=== PATIENT | female | born 1970 | race Caucasian/White ===

== ENCOUNTER 2023-05-07 10:59 | Observation (INO) ==
[2023-05-07 11:07] VITALS: BMI 31.8
[2023-05-07] MEDS ORDERED: TORADOL 30 MG VIAL ONE (12:06)
[2023-05-07] MEDS ORDERED: NS 1,000 ML IV 1,000 ML ONE ×2 (12:06→13:20)
[2023-05-07] MEDS ORDERED: ZOFRAN INJ 4 MG VIAL ONE ×2 (12:06→13:31)
--- NOTE | 2023-05-07 12:10 | DR.NAUSEAF ---
HPI Time Seen Time Seen by Provider: 05/07/23 12:10 Primary Care Physician Primary Care Physician: [place] Complaints Chief Complaint Doctors Comments: 52-year-old female presents for evaluation. Patient became ill this past weekend, developed nausea, vomiting and diarrhea, with diffuse abdominal pain. Was seen evaluated here 3 days ago. CAT scan showed diffuse colitis changes be present. Patient was discharged on antibiotics. Patient had worsening nausea and vomiting this a.m. Unable to keep down her medications. Diarrhea has finally improved with some Lomotil. Thinks some abdominal discomfort, periumbilical region. Worse with palpation and movement. Nothing makes better. Has been running some low-grade fevers. Denies any upper respiratory symptoms. No urinary complaints. No history of any prior intestinal issues. Chief Complaint:: Patient states that she came to the ER 05/03/23 and was diagnosed with colitis after scans were taken. Dr. Mantilla prescribed medication for her to take, but her loose stools and throwing up continued. She states that she continues to throw up today, and is unable to keep any medication down. COVID-19 Coronavirus risk:travel/contact w/high risk person: No Has patient experienced Coronavirus symptoms: No Reviewed Nurses Notes Reviewed: Yes Source History Provided: Patient Mode of Arrival Mode of Arrival: Ambulatory Timing Onset of Chief Complaint: 05/03/23 PMH PMH Past Medical History: Yes Past Medical History: Asthma and GERD Past Surgical History: Yes Surgical History: Hysterectomy and Tonsillectomy Family History History of Family Medical Conditions: Yes Family Medical History: Coronary Artery Disease and Hypertension Social History Does patient currently use any type of tobacco product: No Have you used tobacco products in the last 12 months: No Type of Tobacco Use: None Does any household member use tobacco: No Alcohol Use: None Do you use any recreational Drugs:: No Lives With: Spouse Lives Where: Home Travel Risk Coronavirus risk:travel/contact w/high risk person: No Has patient experienced Coronavirus symptoms: No Infectious screening In the last 2 months have you had wt loss of >10#?: NO Have you had fever, night sweats or hemotysis?: No Have you traveled outside the country in the last 6 months?: No Isolation: Standard ROS Review of Systems Constitutional: No Symptoms Reported Eyes: No Symptoms Reported ENTM: No Symptoms Reported Respiratoy: No Symptoms Reported Cardiovascular: No Symptoms Reported Gastrointestinal/Abdominal: See HPI Genitourinary: No Symptoms Reported Neurological: No Symptoms Reported Musculoskeletal: No Symptoms Reported Integumentary: No Symptoms Reported Hematologic/Lymphatic: No Symptoms Reported All Other Systems: Reviewed and Negative PE Vital Signs Vitals: Vital Signs Temperature 97.7 F Pulse Rate 99 Respiratory Rate 18 Respiratory Rate 18 Blood Pressure 131/71 O2 Sat by Pulse Oximetry 99 General General Appearance: Alert and In No Apparent Distress Eyes Eye exam: PERRL and EOMI ENT ENT Exam: Mucous Membranes Moist Neck Neck Exam: Normal Inspection Chest Chest Inspection: Normal Inspection Respiratory Respiratory Exam: Normal Lung Sounds Bilat; negative Accessory Muscle Use or Respiratory Distress Cardiovascular Cardiovascular Exam: Regular Rate, Normal Rhythm and Normal Heart Sounds Abdominal Exam Abdominal Exam: Normal Bowel Sounds, Soft and Tenderness (mild, all quadrants diffusely, no guarding or rebound.) Extremities Extremities Exam: Normal Inspection; negative Edema Neurologic Neurological Exam: Alert, Oriented X3 and CN II-XII Intact; negative Motor Sensory Deficit Skin Skin Exam: Warm and Dry COURSE Treatment Treatment: 52 y/o female recently diagnosed with colitis, presents with worsening nausea and vomiting. Workup initiated. Patient given IV fluids. Given IV Zofran/Toradol, will add IV protonix. 1325 -labs show elevated white count, elevated creatinine and decreased EGFR consistent with volume depletion. Recommend admission for further treatment of her colitis and dehydration. Patient works here in the hospital, would like to be admitted to Ms. Mejia/Dr. Mcclure service. RN discussed with Ms. Mejia, she accepts the admission. ROR Labs Reviewed Laboratory Results Reviewed?: Yes 05/07/23 12:02 05/07/23 12:02 Laboratory: WBC 16.2 X10^3/uL (3.6-10.0) H 05/07/23 12:02 RBC 4.63 X10^6/uL (3.5-5.4) 05/07/23 12:02 Hgb 12.7 g/dL (12.0-16.0) 05/07/23 12:02 Hct 39.1 % (36.0-47.0) 05/07/23 12:02 MCV 84.5 fL (80.0-100.0) 05/07/23 12:02 MCH 27.3 pg (27.0-34.0) 05/07/23 12:02 MCHC 32.3 g/dL (33.0-35.0) L 05/07/23 12:02 RDW 15.8 % (11.6-16.5) 05/07/23 12:02 Plt Count 300 X10^3/uL (150.0-450.0) 05/07/23 12:02 MPV 7.9 fL (7.4-11.0) 05/07/23 12:02 Neut % (Auto) 85.5 % (42.0-75.0) H 05/07/23 12:02 Lymph % (Auto) 6.8 % (21.0-51.0) L 05/07/23 12:02 [place] % (Auto) 6.9 % (0.0-13.0) 05/07/23 12:02 Eos % (Auto) 0.3 % (0.9-2.9) L 05/07/23 12:02 Baso % (Auto) 0.5 % (0.2-1.0) 05/07/23 12:02 Neut # (Auto) 13.8 x10^3/uL (2.2-4.8) H 05/07/23 12:02 Lymph # (Auto) 1.1 X10^3/uL (1.3-2.9) L 05/07/23 12:02 [place] # (Auto) 1.1 x10^3/uL (0.3-0.8) H 05/07/23 12:02 Eos # (Auto) 0.0 x10^3/uL (0.0-0.2) 05/07/23 12:02 Baso # (Auto) 0.1 X10^3/uL (0.0-0.1) 05/07/23 12:02 Absolute Nucleated RBC 0.0 /100WBC 05/07/23 12:02 Sodium 143 mmol/L (136-145) 05/07/23 12:02 Corrected Sodium TNP 05/07/23 12:02 Potassium 4.1 mmol/L (3.5-5.1) 05/07/23 12:02 Chloride 107 mmol/L (98-107) 05/07/23 12:02 Carbon Dioxide 26.6 mmol/L (21-32) 05/07/23 12:02 BUN 15 mg/dL (7-18) 05/07/23 12:02 Creatinine 2.64 mg/dL (0.55-1.02) H 05/07/23 12:02 Est GFR (MDRD) Af Amer 25 (>60) L 05/07/23 12:02 Est GFR (MDRD) Non-Af 20 (>60) L 05/07/23 12:02 Glucose 107 mg/dL (65-99) H 05/07/23 12:02 Calcium 9.2 mg/dL (8.5-10.1) 05/07/23 12:02 Corrected Calcium 10.2 mg/dL (8.5-10.1) H 05/07/23 12:02 Total Bilirubin 0.30 mg/dL (0.2-1.0) 05/07/23 12:02 AST 38 Units/L (15-37) H 05/07/23 12:02 ALT 21 Units/L (12-78) 05/07/23 12:02 Alkaline Phosphatase 60 Units/L (46-116) 05/07/23 12:02 Total Protein 6.5 g/dL (6.4-8.2) 05/07/23 12:02 Albumin 2.8 g/dL (3.4-5.0) L 05/07/23 12:02 Globulin 3.7 g/dL (2.5-4.5) 05/07/23 12:02 Albumin/Globulin Ratio 0.8 Ratio (1.1-2.1) L 05/07/23 12:02 Lipase 23 Units/L (16-77) 05/07/23 12:02 Elevated WBC, elevated creatinine with a decrease EGFR Opioid Opioid Risk Tool Age (Tim box if 16-45): No History of Preadolescent Sexual Abuse: No Total: 0 Total Score Risk Category: Low Risk Copyright: Grayson FREDERICK predicting aberrant behaviors Discharge Plan Diagnosis Discharge Problem: Colitis, Acute kidney injury Discharge Plan Patient Disposition: 09 ADMITTED INPATIENT Condition: Stable Orders to Discharge Patient Discharge Orders: Transfer (Routine); Ordered 05/07/23 Ordered By: Prabhakar Espinoza
[2023-05-07] MEDS: NS 1,000 ML IV 1,000 ML IV ONE ×2 (12:13→13:42)
[2023-05-07] MEDS: TORADOL 30 MG VIAL IVP ONE (12:14)
[2023-05-07] MEDS: ZOFRAN INJ 4 MG VIAL IVP ONE ×2 (12:14→13:43)
[2023-05-07] MEDS ORDERED: PROTONIX INJ 40 MG VIAL ONE (12:21)
[2023-05-07] MEDS: PROTONIX INJ 40 MG VIAL IVP ONE (12:26)
[2023-05-07 12:31] LABS: BASOPHILS # (AUTO) 0.1 X10^3/uL (0.0-0.1); BASOPHILS % (AUTO) 0.5 % (0.2-1.0); EOSINOPHILS % (AUTO) 0.3 % (0.9-2.9); HEMATOCRIT 39.1 % (36.0-47.0); HEMOGLOBIN 12.7 g/dL (12.0-16.0); LYMPHOCYTES # (AUTO) 1.1 X10^3/uL (1.3-2.9); LYMPHOCYTES % (AUTO) 6.8 % (21.0-51.0); MEAN CORPUSCULAR HEMOGLOBIN 27.3 pg (27.0-34.0); MEAN CORPUSCULAR HGB CONC 32.3 g/dL (33.0-35.0); MEAN CORPUSCULAR VOLUME 84.5 fL (80.0-100.0); MEAN PLATELET VOLUME 7.9 fL (7.4-11.0); MONOCYTES # (AUTO) 1.1 x10^3/uL (0.3-0.8); MONOCYTES % (AUTO) 6.9 % (0.0-13.0); NEUTROPHILS # (AUTO) 13.8 x10^3/uL (2.2-4.8); NEUTROPHILS % (AUTO) 85.5 % (42.0-75.0); PLATELET COUNT 300 X10^3/uL (150.0-450.0); RED BLOOD COUNT 4.63 X10^6/uL (3.5-5.4); RED CELL DISTRIBUTION WIDTH 15.8 % (11.6-16.5); WHITE BLOOD COUNT 16.2 X10^3/uL (3.6-10.0)
[2023-05-07 12:38] LABS: ALANINE AMINOTRANSFERASE 21 Units/L (12-78); ALBUMIN 2.8 g/dL (3.4-5.0); ALKALINE PHOSPHATASE 60 Units/L (46-116); ASPARTATE AMINO TRANSFERASE 38 Units/L (15-37); BLOOD UREA NITROGEN 15 mg/dL (7-18); CALCIUM 9.2 mg/dL (8.5-10.1); CARBON DIOXIDE 26.6 mmol/L (21-32); CHLORIDE 107 mmol/L (98-107); COR CA(FOR HYPOALB) 10.2 mg/dL (8.5-10.1); CREATININE 2.64 mg/dL (0.55-1.02); GLUCOSE 107 mg/dL (65-99); LIPASE 23 Units/L (16-77); POTASSIUM 4.1 mmol/L (3.5-5.1); SODIUM 143 mmol/L (136-145); TOTAL PROTEIN 6.5 g/dL (6.4-8.2); eGFR NON BLACK RACES 20 (>60)
[2023-05-07] MEDS: D5 1/2 NS 1,000 ML 1,000 ML IV SCH (15:14)
[2023-05-07] MEDS: FLAGYL IV PREMIX 500 MG BAG 500 MG/100 ML BAG IV SCH (15:14)
[2023-05-07] MEDS: ZOSYN VIAL 3.375 GRAMS 3.375 G in NS 100 ML IV 100 ML IV SCH (16:09)
[2023-05-07] MEDS: ZOFRAN INJ 4 MG VIAL IVP PRN (18:32)
[2023-05-07 22:39] LABS: BILIRUBIN,URINE NEGATIVE (NEGATIVE); BLOOD/HEMOGLOBIN,URINE NEGATIVE (NEGATIVE); GLUCOSE, URINE NEGATIVE (NEGATIVE); KETONES,URINE NEGATIVE (NEGATIVE); LEUKOCYTE ESTERASE ,URINE 1+ (NEGATIVE); NITRITES,URINE NEGATIVE (NEGATIVE); PROTEIN,URINE 2+ (NEGATIVE); UROBILINOGEN,URINE NORMAL (NORMAL)
[2023-05-07 22:45] LABS: APPEARANCE,URINE CLEAR (CLEAR); BACTERIA,URINE 1+ /HPF (NEGATIVE); COLOR,URINE YELLOW (YELLOW); RBC,URINE 0-2 /HPF (0-3); SQUAMOUS EPITHELIAL CELL,UR FEW /HPF (NEGATIVE); YEAST,URINE RARE /HPF (NEGATIVE)
[2023-05-08] MEDS: FLAGYL IV PREMIX 500 MG BAG 500 MG/100 ML BAG IV SCH (05:33)
[2023-05-08 06:28] LABS: BASOPHILS # (AUTO) 0.1 X10^3/uL (0.0-0.1); BASOPHILS % (AUTO) 0.6 % (0.2-1.0); EOSINOPHILS # (AUTO) 0.2 x10^3/uL (0.0-0.2); HEMATOCRIT 32.5 % (36.0-47.0); HEMOGLOBIN 10.8 g/dL (12.0-16.0); LYMPHOCYTES # (AUTO) 2.2 X10^3/uL (1.3-2.9); LYMPHOCYTES % (AUTO) 21.3 % (21.0-51.0); MEAN CORPUSCULAR HEMOGLOBIN 27.7 pg (27.0-34.0); MEAN CORPUSCULAR HGB CONC 33.1 g/dL (33.0-35.0); MEAN CORPUSCULAR VOLUME 83.7 fL (80.0-100.0); MEAN PLATELET VOLUME 7.6 fL (7.4-11.0); MONOCYTES # (AUTO) 1.2 x10^3/uL (0.3-0.8); NEUTROPHILS # (AUTO) 6.9 x10^3/uL (2.2-4.8); NEUTROPHILS % (AUTO) 65.1 % (42.0-75.0); PLATELET COUNT 265 X10^3/uL (150.0-450.0); RED BLOOD COUNT 3.88 X10^6/uL (3.5-5.4); RED CELL DISTRIBUTION WIDTH 15.9 % (11.6-16.5); WHITE BLOOD COUNT 10.5 X10^3/uL (3.6-10.0)
[2023-05-08] MEDS: ZOSYN VIAL 3.375 GRAMS 3.375 G in NS 100 ML IV 100 ML IV SCH (06:32)
[2023-05-08 06:37] LABS: ALANINE AMINOTRANSFERASE 12 Units/L (12-78); ALBUMIN 2.3 g/dL (3.4-5.0); ALKALINE PHOSPHATASE 50 Units/L (46-116); ASPARTATE AMINO TRANSFERASE 22 Units/L (15-37); BLOOD UREA NITROGEN 11 mg/dL (7-18); CALCIUM 8.1 mg/dL (8.5-10.1); CARBON DIOXIDE 23.7 mmol/L (21-32); CHLORIDE 110 mmol/L (98-107); COR CA(FOR HYPOALB) 9.5 mg/dL (8.5-10.1); CREATININE 1.91 mg/dL (0.55-1.02); GLUCOSE 107 mg/dL (65-99); POTASSIUM 3.6 mmol/L (3.5-5.1); SODIUM 143 mmol/L (136-145); TOTAL PROTEIN 5.3 g/dL (6.4-8.2); eGFR NON BLACK RACES 29 (>60)
[2023-05-08] MEDS ORDERED: CONSULT PHARMACY - POTASSIUM & MAGNESIUM XX SCH (08:00)
[2023-05-08] MEDS ORDERED: PROTONIX INJ 40 MG VIAL IVP SCH (09:00)
[2023-05-08] MEDS: K-DUR TAB 20 MEQ PO SCH (09:37)
[2023-05-08] MEDS: PROTONIX INJ 40 MG VIAL IVP SCH (09:37)
[2023-05-08] MEDS: NS 1,000 ML IV 1,000 ML IV SCH (10:03)
[2023-05-08] MEDS: BENTYL CAP 10 MG PO SCH (10:03)
[2023-05-08] MEDS: DIFLUCAN PO SCH (10:49)
--- NOTE | 2023-05-08 12:38 | DR.H&P ---
H&P History & Physical for Day of: H&P Date: 05/07/23 Chief Complaint Chief Complaint: Abdominal pain with nausea, vomiting, diarrhea Allergies Allergies Allergy/AdvReac Type Severity Reaction Status Date / Time No Known Drug Allergies Allergy Unknown Verified 05/03/23 18:18 History of Present Illness History of Present Illness: 52-year-old female who is an ER admission after presenting with complaints of a several day history of abdominal pain with nausea, vomiting, diarrhea. She presented to ER on 05/03/[address] that showed colitis. She was discharged home on antibiotics. She states that she did have some improvement of diarrhea with use of lomotil, but reports worsening nausea, vomiting with low grade fever. Denies any upper respiratory symptoms. No urinary complaints. No history of any prior intestinal issues. ER labs revealed WBC 16.2, Hgb 12.7, BUN 15/Creatinine 2.64. She was admitted for Colitis and acute kidney injury. Past Medical History Past Medical History: Asthma and GERD Past Surgical History Surgical History: Hysterectomy and Tonsillectomy Family History Family Medical History: Coronary Artery Disease and Hypertension Social History Does patient currently use any type of tobacco product: No Have you used tobacco products in the last 12 months: No Type of Tobacco Use: None Does any household member use tobacco: No Alcohol Use: None Drug Use: None Medications Home Medications: Home Medications Medication Instructions Recorded Confirmed Type ciprofloxacin HCl 500 mg tablet 500 mg PO BID 05/07/23 05/07/23 History dicyclomine 10 mg capsule 10 mg PO TID 05/07/23 05/07/23 History diphenoxylate-atropine 2.5 1 tab PO TID PRN 05/07/23 05/07/23 History mg-0.025 mg tablet hydrocodone 5 mg-acetaminophen 325 1 tab PO Q8H PRN 05/07/23 05/07/23 History mg tablet metronidazole 500 mg tablet 500 mg PO TID 05/07/23 05/07/23 History pantoprazole 40 mg tablet,delayed 40 mg PO BID 05/07/23 05/07/23 History release phentermine 37.5 mg tablet 37.5 mg PO QAM 05/07/23 05/07/23 History Labs 05/08/23 05:45 05/08/23 05:45 Labs: 05/07/23 22:20 Urine,Clean Catch Urine Culture - Preliminary 05/07/23 17:05 Stool Stool Culture - Preliminary 05/07/23 17:05 Stool - Final Laboratory WBC 10.5 X10^3/uL (3.6-10.0) H 05/08/23 05:45 RBC 3.88 X10^6/uL (3.5-5.4) 05/08/23 05:45 Hgb 10.8 g/dL (12.0-16.0) L 05/08/23 05:45 Hct 32.5 % (36.0-47.0) L 05/08/23 05:45 MCV 83.7 fL (80.0-100.0) 05/08/23 05:45 MCH 27.7 pg (27.0-34.0) 05/08/23 05:45 MCHC 33.1 g/dL (33.0-35.0) 05/08/23 05:45 RDW 15.9 % (11.6-16.5) 05/08/23 05:45 Plt Count 265 X10^3/uL (150.0-450.0) 05/08/23 05:45 MPV 7.6 fL (7.4-11.0) 05/08/23 05:45 Neut % (Auto) 65.1 % (42.0-75.0) 05/08/23 05:45 Lymph % (Auto) 21.3 % (21.0-51.0) 05/08/23 05:45 [place] % (Auto) 11.0 % (0.0-13.0) 05/08/23 05:45 Eos % (Auto) 2.0 % (0.9-2.9) 05/08/23 05:45 Baso % (Auto) 0.6 % (0.2-1.0) 05/08/23 05:45 Neut # (Auto) 6.9 x10^3/uL (2.2-4.8) H 05/08/23 05:45 Lymph # (Auto) 2.2 X10^3/uL (1.3-2.9) 05/08/23 05:45 [place] # (Auto) 1.2 x10^3/uL (0.3-0.8) H 05/08/23 05:45 Eos # (Auto) 0.2 x10^3/uL (0.0-0.2) 05/08/23 05:45 Baso # (Auto) 0.1 X10^3/uL (0.0-0.1) 05/08/23 05:45 Absolute Nucleated RBC 0.0 /100WBC 05/08/23 05:45 Sodium 143 mmol/L (136-145) 05/08/23 05:45 Corrected Sodium TNP 05/08/23 05:45 Potassium 3.6 mmol/L (3.5-5.1) 05/08/23 05:45 Chloride 110 mmol/L (98-107) H 05/08/23 05:45 Carbon Dioxide 23.7 mmol/L (21-32) 05/08/23 05:45 BUN 11 mg/dL (7-18) 05/08/23 05:45 Creatinine 1.91 mg/dL (0.55-1.02) H 05/08/23 05:45 Est GFR (MDRD) Af Amer 36 (>60) L 05/08/23 05:45 Est GFR (MDRD) Non-Af 29 (>60) L 05/08/23 05:45 Glucose 107 mg/dL (65-99) H 05/08/23 05:45 Hemoglobin A1c 5.3 % 05/08/23 05:45 Calcium 8.1 mg/dL (8.5-10.1) L 05/08/23 05:45 Corrected Calcium 9.5 mg/dL (8.5-10.1) 05/08/23 05:45 Total Bilirubin 0.20 mg/dL (0.2-1.0) 05/08/23 05:45 AST 22 Units/L (15-37) 05/08/23 05:45 ALT 12 Units/L (12-78) 05/08/23 05:45 Alkaline Phosphatase 50 Units/L (46-116) 05/08/23 05:45 Total Protein 5.3 g/dL (6.4-8.2) L 05/08/23 05:45 Albumin 2.3 g/dL (3.4-5.0) L 05/08/23 05:45 Globulin 3.0 g/dL (2.5-4.5) 05/08/23 05:45 Albumin/Globulin Ratio 0.8 Ratio (1.1-2.1) L 05/08/23 05:45 Lipase 23 Units/L (16-77) 05/07/23 12:02 Specimen Type Clean catch urine 05/07/23 22:20 Urine Color Yellow (YELLOW) 05/07/23 22:20 Urine Appearance Clear (CLEAR) 05/07/23 22:20 Urine pH 5.0 (5.0 - 8.0) 05/07/23 22:20 Ur Specific [place] 1.020 (1.000-1.030) 05/07/23 22:20 Urine Protein 2+ (NEGATIVE) 05/07/23 22:20 Urine Glucose (UA) Negative (NEGATIVE) 05/07/23 22:20 Urine Ketones Negative (NEGATIVE) 05/07/23 22:20 Urine Blood Negative (NEGATIVE) 05/07/23 22:20 Urine Nitrite Negative (NEGATIVE) 05/07/23 22:20 Urine Bilirubin Negative (NEGATIVE) 05/07/23 22:20 Urine Urobilinogen Normal (NORMAL) 05/07/23 22:20 Ur Leukocyte Esterase 1+ (NEGATIVE) 05/07/23 22:20 Urine RBC 0-2 /HPF (0-3) 05/07/23 22:20 Urine WBC 3-5 /HPF (0-5) 05/07/23 22:20 Ur Squamous Epith Cells Few /HPF (NEGATIVE) 05/07/23 22:20 Urine Bacteria 1+ /HPF (NEGATIVE) 05/07/23 22:20 Urine Yeast Rare /HPF (NEGATIVE) 05/07/23 22:20 Ur Culture Indicated? Yes/culture set up 05/07/23 22:20 Stl C. diff Tox B Gene Negative (NEGATIVE) 05/07/23 17:05 Stl C. diff [id number] Presumptive negative (NEGATIVE) 05/07/23 17:05 Review of Systems Constitutional: Fever, Chills, Weakness and Malaise Eyes: No Symptoms Reported ENT: No Symptoms Reported Respiratory: No Symptoms Reported Cardiovascular: No Symptoms Reported Gastrointestinal: Nausea, Vomiting, Abdominal Pain and Diarrhea Genitourinary: No Symptoms Reported Musculoskeletal: No Symptoms Reported Skin: No Symptoms Reported Neurological: No Symptoms Reported Physical Exam Vital Signs: Vital Signs Temperature 98.3 F Temperature 97.9 F Pulse Rate [Bilateral Radial] 82 Pulse Rate [Bilateral Radial] 78 Respiratory Rate 18 Respiratory Rate 18 Blood Pressure [Left Arm] 108/64 Blood Pressure [Left Arm] 120/61 O2 Sat by Pulse Oximetry 99 O2 Sat by Pulse Oximetry 98 Oriented: Normal Eyes: Normal Ear: Normal Nose: Normal Throat: Normal Respiratory: RLL Diminished and LLL Diminished Cardiovascular: Normal : Normal Auscultation: Bowel Sounds: Increased Tenderness: LLQ, Epigastric and Mild Musculoskeletal: Normal Psychiatric: Normal Mood Description: Calm Speech Pattern: Clear Assessment/Plan (1) Acute kidney injury: Narrative Support Text: ADMIT, IV HYDRATION WITH I&O REPEAT AM CMP AND CBC RESP PANEL ON ADMISSION VERIFY AND RESUME HOME MEDICATIONS STOOL STUDIES, GI CONSULT IV ATBX Status: Acute (2) Colitis: Status: Acute
--- NOTE | 2023-05-08 12:43 | PCM.PROG ---
Progress Note Progress Note for Day of Date of Exam: 05/08/23 Subjective Subjective: 52-year-old female who is an ER admission after presenting with complaints of a several day history of abdominal pain with nausea, vomiting, diarrhea. She presented to ER on 05/03/[address] that showed colitis. She was discharged home on antibiotics. She states that she did have some improvement of diarrhea with use of lomotil, but reports worsening nausea, vomiting with low grade fever. Denies any upper respiratory symptoms. No urinary complaints. No history of any prior intestinal issues. ER labs revealed WBC 16.2, Hgb 12.7, BUN 15/Creatinine 2.64. She was admitted for Colitis and acute kidney injury. Pt has been on Iv hydration since admission with renal function improved on AM labs this am bun 11/creat 1.91. Pt denies any vomiting since admission but nausea during the night. Pts stool study was negative for Cdiff, other stool studies pending. Pt is tolerating small amount of clear liquid diet this am. Pt reports PMH of asthma, controlled on current regimen and denies any chest pain or SOB this am. Past Medical Family Social History Allergies: Allergies No Known Drug Allergies Allergy (Unknown, Verified 05/03/23 18:18) Onset Date: 10/28/2013 Vital Signs and I&O's Vital Signs: Vital Signs Temperature 98.3 F Pulse Rate [Bilateral Radial] 82 Respiratory Rate 18 Blood Pressure [Left Arm] 108/64 O2 Sat by Pulse Oximetry 99 Intake and Output: Intake & Output 05/06/23 05/07/23 05/08/23 05/09/23 11:59 11:59 11:59 11:59 Intake Total 2330 / 2330 Balance 2330 / 2330 Physical Exam Oriented: Normal Eyes: Normal Ear: Normal Nose: Normal Throat: Normal Cardiovascular: Normal : Normal Auscultation: Bowel Sounds: Increased Tenderness: LLQ, Epigastric and Mild Musculoskeletal: Normal Psychiatric: Normal Mood Description: Calm Speech Pattern: Clear Laboratory and Diagnostics 05/08/23 05:45 05/08/23 05:45 Labs: 05/07/23 22:20 Urine,Clean Catch Urine Culture - Preliminary 05/07/23 17:05 Stool Stool Culture - Preliminary 05/07/23 17:05 Stool - Final Laboratory WBC 10.5 X10^3/uL (3.6-10.0) H 05/08/23 05:45 RBC 3.88 X10^6/uL (3.5-5.4) 05/08/23 05:45 Hgb 10.8 g/dL (12.0-16.0) L 05/08/23 05:45 Hct 32.5 % (36.0-47.0) L 05/08/23 05:45 MCV 83.7 fL (80.0-100.0) 05/08/23 05:45 MCH 27.7 pg (27.0-34.0) 05/08/23 05:45 MCHC 33.1 g/dL (33.0-35.0) 05/08/23 05:45 RDW 15.9 % (11.6-16.5) 05/08/23 05:45 Plt Count 265 X10^3/uL (150.0-450.0) 05/08/23 05:45 MPV 7.6 fL (7.4-11.0) 05/08/23 05:45 Neut % (Auto) 65.1 % (42.0-75.0) 05/08/23 05:45 Lymph % (Auto) 21.3 % (21.0-51.0) 05/08/23 05:45 [place] % (Auto) 11.0 % (0.0-13.0) 05/08/23 05:45 Eos % (Auto) 2.0 % (0.9-2.9) 05/08/23 05:45 Baso % (Auto) 0.6 % (0.2-1.0) 05/08/23 05:45 Neut # (Auto) 6.9 x10^3/uL (2.2-4.8) H 05/08/23 05:45 Lymph # (Auto) 2.2 X10^3/uL (1.3-2.9) 05/08/23 05:45 [place] # (Auto) 1.2 x10^3/uL (0.3-0.8) H 05/08/23 05:45 Eos # (Auto) 0.2 x10^3/uL (0.0-0.2) 05/08/23 05:45 Baso # (Auto) 0.1 X10^3/uL (0.0-0.1) 05/08/23 05:45 Absolute Nucleated RBC 0.0 /100WBC 05/08/23 05:45 Sodium 143 mmol/L (136-145) 05/08/23 05:45 Corrected Sodium TNP 05/08/23 05:45 Potassium 3.6 mmol/L (3.5-5.1) 05/08/23 05:45 Chloride 110 mmol/L (98-107) H 05/08/23 05:45 Carbon Dioxide 23.7 mmol/L (21-32) 05/08/23 05:45 BUN 11 mg/dL (7-18) 05/08/23 05:45 Creatinine 1.91 mg/dL (0.55-1.02) H 05/08/23 05:45 Est GFR (MDRD) Af Amer 36 (>60) L 05/08/23 05:45 Est GFR (MDRD) Non-Af 29 (>60) L 05/08/23 05:45 Glucose 107 mg/dL (65-99) H 05/08/23 05:45 Hemoglobin A1c 5.3 % 05/08/23 05:45 Calcium 8.1 mg/dL (8.5-10.1) L 05/08/23 05:45 Corrected Calcium 9.5 mg/dL (8.5-10.1) 05/08/23 05:45 Total Bilirubin 0.20 mg/dL (0.2-1.0) 05/08/23 05:45 AST 22 Units/L (15-37) 05/08/23 05:45 ALT 12 Units/L (12-78) 05/08/23 05:45 Alkaline Phosphatase 50 Units/L (46-116) 05/08/23 05:45 Total Protein 5.3 g/dL (6.4-8.2) L 05/08/23 05:45 Albumin 2.3 g/dL (3.4-5.0) L 05/08/23 05:45 Globulin 3.0 g/dL (2.5-4.5) 05/08/23 05:45 Albumin/Globulin Ratio 0.8 Ratio (1.1-2.1) L 05/08/23 05:45 Lipase 23 Units/L (16-77) 05/07/23 12:02 Specimen Type Clean catch urine 05/07/23 22:20 Urine Color Yellow (YELLOW) 05/07/23 22:20 Urine Appearance Clear (CLEAR) 05/07/23 22:20 Urine pH 5.0 (5.0 - 8.0) 05/07/23 22:20 Ur Specific [place] 1.020 (1.000-1.030) 05/07/23 22:20 Urine Protein 2+ (NEGATIVE) 05/07/23 22:20 Urine Glucose (UA) Negative (NEGATIVE) 05/07/23 22:20 Urine Ketones Negative (NEGATIVE) 05/07/23 22:20 Urine Blood Negative (NEGATIVE) 05/07/23 22:20 Urine Nitrite Negative (NEGATIVE) 05/07/23 22:20 Urine Bilirubin Negative (NEGATIVE) 05/07/23 22:20 Urine Urobilinogen Normal (NORMAL) 05/07/23 22:20 Ur Leukocyte Esterase 1+ (NEGATIVE) 05/07/23 22:20 Urine RBC 0-2 /HPF (0-3) 05/07/23 22:20 Urine WBC 3-5 /HPF (0-5) 05/07/23 22:20 Ur Squamous Epith Cells Few /HPF (NEGATIVE) 05/07/23 22:20 Urine Bacteria 1+ /HPF (NEGATIVE) 05/07/23 22:20 Urine Yeast Rare /HPF (NEGATIVE) 05/07/23 22:20 Ur Culture Indicated? Yes/culture set up 05/07/23 22:20 Stl C. diff Tox B Gene Negative (NEGATIVE) 05/07/23 17:05 Stl C. diff [id number] Presumptive negative (NEGATIVE) 05/07/23 17:05 Plan (1) Acute kidney injury: Status: Acute Narrative Support Text: IV HYDRATION, CONTINUE IV ATBX THERAPY ORAL HYDRATION TOLERATED I&Os, REPEAT AM LABS STOOL STUDIES PENDING. (2) Colitis: Status: Acute
[2023-05-08] MEDS ORDERED: REGLAN INJ 10 MG VIAL IVP PRN (13:01)
--- NOTE | 2023-05-08 16:40 | DR.CONSULT ---
Consult - Consultation for Day of: Date: 05/08/23 (GI) - Chief Complaint Chief Complaint: N/V/D - History of Present Illness History of Present Illness: Patient is a 52 y/o who is referred for colitis, nausea, vomiting, and diarrhea. Patient has complaints of abdominal pain, nausea, vomiting, and diarrhea x5-6 days. She reports having an EGD done in 2018. Last colonoscopy was done last year, patient reports having colon polyps removed, and recommended to repeat colonoscopy in 5 years. She is on Protonix at home. Patient was seen in ER on 05/03/23 with similar complaints, discharged home with antibiotics. However, she has had little improvement with symptoms, and returned to the ER yesterday. Pt presented with complaints of a several day history of abdominal pain with nausea, vomiting, diarrhea. She presented to ER on 05/03/[address] that showed colitis. She was discharged home on antibiotics. She states that she did have some improvement of diarrhea with use of lomotil, but reports worsening nausea, vomiting with low grade fever. Denies any upper respiratory symptoms. No urinary complaints. No history of any prior intestinal issues. ER labs revealed WBC 16.2, Hgb 12.7, BUN 15/Creatinine 2.64. She was admitted for Colitis and acute kidney injury. - Past Medical History Past Medical History: Asthma, GERD - Past Surgical History Surgical History: Hysterectomy, Tonsillectomy - Family History Family Medical History: Coronary Artery Disease, Hypertension - Social History Does patient currently use any type of tobacco product: No Have you used tobacco products in the last 12 months: No Type of Tobacco Use: None Does any household member use tobacco: No Alcohol Use: None Drug Use: None - Medications Home Medications: No Known Drug Allergies Allergy (Unknown, Verified 05/03/23 18:18) CONTINUE taking the following medications ciprofloxacin HCl 500 mg tablet 500 mg PO BID 05/07/23 [History] dicyclomine 10 mg capsule 10 mg PO TID 05/07/23 [History] diphenoxylate-atropine 2.5 mg-0.025 mg tablet 1 tab PO TID PRN 05/07/23 [History] hydrocodone 5 mg-acetaminophen 325 mg tablet 1 tab PO Q8H PRN 05/07/23 [History] metronidazole 500 mg tablet 500 mg PO TID 05/07/23 [History] pantoprazole 40 mg tablet,delayed release 40 mg PO BID 05/07/23 [History] phentermine 37.5 mg tablet 37.5 mg PO QAM 05/07/23 [History] - Review of Systems Constitutional: Fever, Weakness. denies: No Symptoms Reported, See HPI, Chills, Sweats, Malaise, Other Eyes: No Symptoms Reported. denies: See HPI, Pain, Vision Change, Conjunctivae Inflammation, Eyelid Inflammation, Redness, Other ENT: No Symptoms Reported. denies: See HPI, Ear Pain, Ear Discharge, Nose Pain, Nose Discharge, Nose Congestion, Mouth Pain, Mouth Swelling, Throat Pain, Throat Swelling, Other Respiratory: No Symptoms Reported. denies: See HPI, Cough, Dry, Shortness of Breath, Hemoptysis, SOB with Excertion, Pleuritic Pain, Sputum, Wheezing, Other Cardiovascular: No Symptoms Reported. denies: Chest Pain, See HPI, Palpitations, Orthopnea, Paroxysmal Noc. Dyspnea, Edema, Light Headedness, Other Gastrointestinal: Nausea, Vomiting, Abdominal Pain, Diarrhea. denies: No Symptoms Reported, See HPI, Constipation, Melena, Hematochezia, Other Genitourinary: No Symptoms Reported. denies: See HPI, Dysuria, Frequency, Inc ontinence, Hematuria, Retention, Other Musculoskeletal: No Symptoms Reported. denies: See HPI, Shoulder Pain, Arm Pain, Back Pain, Hand Pain, Leg Pain, Foot Pain, Neck Pain, Other Skin: No Symptoms Reported. denies: See HPI, Rash, Lesions, Jaundice, Bruising, Wound, Ecchymosis, Other Neurological: No Symptoms Reported. denies: See HPI, Weakness, Numbness, Incoordination, Change in Speech, Confusion, Seizures, Other - Physical Exam Vital Signs: Vital Signs Temperature 98.1 F Temperature 98.7 F Pulse Rate [Bilateral Radial] 76 Pulse Rate [Bilateral Radial] 70 Respiratory Rate 18 Respiratory Rate 18 Blood Pressure [Left Arm] 119/65 Blood Pressure [Left Arm] 116/56 O2 Sat by Pulse Oximetry 100 O2 Sat by Pulse Oximetry 98 Oriented: Normal. negative: Time, Person, Place, Not Oriented, Unable to test, Other Eyes: Normal. negative: Blurred Vision, Diplopia, Discharge, Pain, Redness, Photophobia, Other Ear: Normal. negative: Right, Left, Swelling, Ecchymosis, Hemotypanum, Abrasion, Laceration Nose: Normal. negative: Injected, Discharge, Blood, Other Throat: Normal. negative: Tonsillar Hypertrophy, Red, Exudate, Dry, Other Respiratory: Clear Throughout. negative: Diminished Throughout, Rhonchi Throughout, Rales Throughout, Wheezes Throughout, RUL Clear, RML Clear, RLL Clear, CAM Clear, LML Clear, LLL Clear, RUL Diminished, RML Diminished, RLL Diminished, CAM Diminished, LML Diminished, LLL Diminished, RUL Absent, RML Absent, RLL Absent, CAM Absent, LML Absent, LLL Absent, RUL Rhonchi, RML Rhonchi, RLL Rhonchi, CAM Rhonchi, LML Rhonchi, LLL Rhonchi, RUL Insp. Wheeze, RML Insp. Wheeze, RLL Insp. Wheeze, CAM Insp.Wheeze, LML Insp.Wheeze, LLL Insp.Wheeze, RUL Exp. Wheeze, RML Exp. Wheeze, RLL Exp. Wheeze, CAM Exp. Wheeze, LML Exp. Wheeze, LLL Exp. Wheeze, RUL Rales, RML Rales, RLL Rales, CAM Rales, LML Rales, LLL Rales, RUL Rub, RML Rub, RLL Rub, CAM Rub, LML Rub, LLL Rub, RUL Squeak, RML Squeak, RLL Squeak, CAM Squeak, LML Squeak, LLL Squeak Cardiovascular: Normal. negative: Tachycardia, Bradycardia, Irregular, S3, S4, Systolic, Diastolic, Murmur, Edema, Other : negative: Normal, Dysuria, Hematuria, Frequency, Discharge, Testicular Pain, Bleeding, , Other Auscultation: Bowel Sounds: Normal. negative: Bruit, Absent, Increased, Decreased, High Pitched, Other Palpation: negative: Normal, Spleen Enlarged, Liver Enlarged, Mass Pulsatile, Other Tenderness: Epigastric, Periumbilical. negative: Normal, Diffuse, RUQ, RLQ, LUQ, LLQ, Suprapubic, Mild, Moderate, Severe, Rebound, Guarding, Rigidity, Other Skin: Normal. negative: Decreased Turgur, Rash, Papular, Macular, Maculopapular, Vesicular, Pustular, Petechial, Red, Tender, Hot, Diaphoresis, Wound, Bruising, Ecchymosis, Other Musculoskeletal: Normal. negative: Right, Left, Shoulder, Clavicle, Arm, Elbow, Forearm, Wrist, Hand, Hip, Thigh, Knee, Leg, Ankle, Foot, Back:Thoracic, Back:Lumbar, Back:Midline, Back:Paraspinous, Pelvis, Swelling, Tender, Deformity, Pulse Deficit, Motor Deficit, Sensory Deficit, Instability, Crepitance Psychiatric: Normal. negative: Anxiety, Depression, Agitation, Other Mood Description: Calm, Appropriate. negative: Angry, Apathetic, Depressed, Fearful, Flat, Happy, Hostile, Sad, Suspicious, Withdrawn, Anxious, Labile Affect: Normal. negative: Angry, Anxious, Depressed, Flat, Hysterical, Quiet, Violent Speech Pattern: Clear, Appropriate. negative: Unclear, Inappropriate, Delayed, Slurred, Excessive, Aphasic, Artificially Ventilated, Trach(not ventilated) - Plan Plan: Assessment. 1. Abdominal pain, N/V/D, secondary to acute gastroenteritis, R/O infectious vs viral etiology. 2. GERD. 3. H/O colon polyps. Plan: Continue IV hydration, IV Protonix, IV Reglan, IV Zofran PRN, IV antibiotics. C Diff negative, follow up stool studies results. Gradually advance diet as tolerated. Plan D/W Dr. Cheatham - Allergies Allergies/Adverse Reactions: Allergies Allergy/AdvReac Type Severity Reaction Status Date / Time No Known Drug Allergies Allergy Unknown Verified 05/03/23 18:18
[2023-05-09 06:22] LABS: BASOPHILS # (AUTO) 0.1 X10^3/uL (0.0-0.1); EOSINOPHILS # (AUTO) 0.2 x10^3/uL (0.0-0.2); EOSINOPHILS % (AUTO) 2.3 % (0.9-2.9); HEMATOCRIT 35.4 % (36.0-47.0); HEMOGLOBIN 11.5 g/dL (12.0-16.0); LYMPHOCYTES # (AUTO) 2.5 X10^3/uL (1.3-2.9); LYMPHOCYTES % (AUTO) 26.1 % (21.0-51.0); MEAN CORPUSCULAR HEMOGLOBIN 27.5 pg (27.0-34.0); MEAN CORPUSCULAR HGB CONC 32.4 g/dL (33.0-35.0); MEAN PLATELET VOLUME 7.7 fL (7.4-11.0); MONOCYTES # (AUTO) 0.9 x10^3/uL (0.3-0.8); NEUTROPHILS # (AUTO) 5.9 x10^3/uL (2.2-4.8); NEUTROPHILS % (AUTO) 61.6 % (42.0-75.0); PLATELET COUNT 304 X10^3/uL (150.0-450.0); RED BLOOD COUNT 4.17 X10^6/uL (3.5-5.4); RED CELL DISTRIBUTION WIDTH 15.8 % (11.6-16.5); WHITE BLOOD COUNT 9.6 X10^3/uL (3.6-10.0)
[2023-05-09 06:35] LABS: ALANINE AMINOTRANSFERASE 20 Units/L (12-78); ALBUMIN 2.4 g/dL (3.4-5.0); ALKALINE PHOSPHATASE 51 Units/L (46-116); ASPARTATE AMINO TRANSFERASE 34 Units/L (15-37); BLOOD UREA NITROGEN 8 mg/dL (7-18); CARBON DIOXIDE 20.7 mmol/L (21-32); CHLORIDE 113 mmol/L (98-107); COR CA(FOR HYPOALB) 9.3 mg/dL (8.5-10.1); CREATININE 1.43 mg/dL (0.55-1.02); GLUCOSE 89 mg/dL (65-99); MAGNESIUM 1.8 mg/dL (2.0-2.9); POTASSIUM 3.6 mmol/L (3.5-5.1); SODIUM 145 mmol/L (136-145); TOTAL PROTEIN 5.5 g/dL (6.4-8.2); eGFR NON BLACK RACES 41 (>60)
[2023-05-09] MEDS ORDERED: CONSULT PHARMACY - POTASSIUM & MAGNESIUM XX SCH (07:00)
[2023-05-09 08:56] VITALS: RESP 18; O2SAT 99
[2023-05-09] MEDS: MAG-OX TAB PO SCH (09:08)
[2023-05-09] MEDS: K-DUR TAB 20 MEQ PO SCH (09:08)
[2023-05-09] MEDS: IMODIUM CAP 2 MG PO PRN (11:02)
[2023-05-09 12:39] VITALS: BP 123/69; PULSE 52; TEMP 97.2
== END 2023-05-09 13:15 | disposition home or self-care (01) ==
LOC: ER 10:59 → MED/SURG 13:40 → INTOOBSV 13:40 → MED/SURG 14:14
PROVIDERS: ADMIT Internal Medicine; ATTEND Internal Medicine
DX: K52.89 Other specified noninfective gastroenteritis and colitis; K92.2 Gastrointestinal hemorrhage, unspecified; N17.8 Other acute kidney failure; R11.2 Nausea with vomiting, unspecified; I25.10 Atherosclerotic heart disease of native coronary artery without angina pectoris; I10 Essential (primary) hypertension; B37.89 Other sites of candidiasis; R19.7 Diarrhea, unspecified